=== PATIENT | male | born 1985 | race Caucasian/White ===

== ENCOUNTER 2017-06-03 05:50 | Emergency (ER) | payer OTHER ==
[~2017-06-03] VITALS: Ht 170.1 cm; Wt 83.9 kg
[~2017-06-03 05:50] MED LIST: CLARITIN10 MG PO; ZITHROMAX Z PA250 MG PO
[2017-06-03] MEDS ORDERED: PRILOSEC10 M2 PO (06:06)
[2017-06-03] MEDS ORDERED: SINGULAIR5 MG PO (06:06)
[2017-06-03 06:58] LABS: BASO % 0.4 % (0.0-1.0); EOS # 0.1 10*3/uL (0.0-0.4); EOS % 0.7 % (1.0-4.0); HEMATOCRIT 41.6 % (42.0-52.0); HEMOGLOBIN 14.4 g/dl (14.0-18.0); LYMPH # 1.4 10*3/uL (1.3-4.4); LYMPH % 18.9 % (27.0-41.0); MEAN CELL VOLUME 84.6 fl (80.0-94.0); MEAN CORPUSCULAR HGB 29.3 pg (27.0-31.0); MEAN CORPUSCULAR HGB CONC 34.6 g/dl (33.0-37.0); MEAN PLATELET VOLUME 10.3 fl (9.6-12.3); MONO # 0.5 10*3/uL (0.1-1.0); MONO % 6.4 % (3.0-9.0); NEUT # 5.4 10*3/uL (2.3-7.9); NEUT % 73.5 % (47.0-73.0); PLATELET COUNT AUTOMATED 208 10*3/uL (130-400); RED BLOOD COUNT 4.92 10*6/uL (4.50-5.90); RED CELL DISTRI WIDTH 12.4 % (0-14.5); WHITE BLOOD COUNT 7.3 10*3/uL (4.8-10.8)
[2017-06-03 07:12] LABS: ALBUMIN 4.2 gm/dl (3.1-4.5); ALKALINE PHOSPHATASE 54 U/L (45-117); BUN 12 mg/dl (7-24); CHLORIDE 106 mmol/L (98-107); CREATININE 0.93 mg/dL (0.70-1.30); POTASSIUM 3.5 mmol/L (3.5-5.1); SGOT/AST 12 IU/L (3-35); SGPT/ALT 17 U/L (12-78); SODIUM 141 mmol/L (136-145); TOTAL PROTEIN 7.3 gm/dL (6.4-8.2)
[2017-06-03 07:20] LABS: TROPONIN I < 0.015 ng/ml (<0.045)
== END 2017-06-03 09:09 | disposition home or self-care (01) ==
LOC: ED 05:50
PROVIDERS: Emergency Medicine
DX: R42 Dizziness and giddiness (principal); M54.2 Cervicalgia; Z91.040 Latex allergy status; Z79.899 Other long term (current) drug therapy

== ENCOUNTER 2017-06-16 22:46 | Inpatient (IN) | payer OTHER ==
[~2017-06-16] VITALS: Ht 170.1 cm; Wt 81.5 kg
[~2017-06-16 22:46] MED LIST changes: +PRILOSEC10 M2 PO; +SINGULAIR5 MG PO
[2017-06-16 23:04] VITALS: BP 133/87
[2017-06-16 23:31] LABS: BASO % 0.3 % (0.0-1.0); EOS % 0.4 % (1.0-4.0); HEMATOCRIT 44.3 % (42.0-52.0); HEMOGLOBIN 15.3 g/dl (14.0-18.0); LYMPH # 1.2 10*3/uL (1.3-4.4); MEAN CELL VOLUME 82.5 fl (80.0-94.0); MEAN CORPUSCULAR HGB 28.5 pg (27.0-31.0); MEAN CORPUSCULAR HGB CONC 34.5 g/dl (33.0-37.0); MONO # 0.4 10*3/uL (0.1-1.0); MONO % 5.4 % (3.0-9.0); NEUT # 5.7 10*3/uL (2.3-7.9); NEUT % 77.8 % (47.0-73.0); PLATELET COUNT AUTOMATED 195 10*3/uL (130-400); RED BLOOD COUNT 5.37 10*6/uL (4.50-5.90); WHITE BLOOD COUNT 7.4 10*3/uL (4.8-10.8)
[2017-06-16 23:41] LABS: ACT PARTIAL THROMBO TIME 23.8 SECONDS (20.8-31.5); INTERNATIONAL NORM RATIO 1.1 (2.0-3.5)
[2017-06-16 23:50] LABS: ALBUMIN 4.3 gm/dl (3.1-4.5); ALKALINE PHOSPHATASE 62 U/L (45-117); BUN 17 mg/dl (7-24); CHLORIDE 102 mmol/L (98-107); CREATININE 0.95 mg/dL (0.70-1.30); MAGNESIUM 2.5 mg/dL (1.5-2.1); POTASSIUM 3.6 mmol/L (3.5-5.1); SGOT/AST 11 IU/L (3-35); SGPT/ALT 16 U/L (12-78); SODIUM 139 mmol/L (136-145); TOTAL PROTEIN 7.9 gm/dL (6.4-8.2)
[2017-06-16 23:51] LABS: TROPONIN I < 0.015 ng/ml (<0.045)
[2017-06-17 00:25] VITALS: BP 153/75
--- NOTE | 2017-06-17 00:25 | NUR ---
[facility] 31, admitted to , under the services of ALL Lund DO with a diagnosis of ABNORMAL EKG, CHEST PAIN. Chief complaint is CHEST PAIN TIGLING IN LEFT ARM AND NECK . Patient arrived via ambulatory from ER. Monitor applied. Initial assessment completed. Vital signs taken and recorded. ALL LUND DO notified of admission to the unit. Orders received. See assessment for past medical history, medications and allergies. Patient and/or family oriented to unit. [address] visitation policy reviewed. Clothing/patient valuable form completed. PEDRO BETTENCOURT
--- NOTE | 2017-06-17 00:35 | NUR ---
PATENTS HOME MEDICATIONS REVIEWED AND UPDATED JUAQUIN WITH HIS PHARMACY AT THIS TIME.
[2017-06-17] MEDS ORDERED: CELEXA20 MG PO (01:17)
--- NOTE | 2017-06-17 01:20 | NUR ---
MEDICAL RECORDS RELEASE SIGNED BY PATIENT TO OBTAIN CARDIAC STRESS TEST FROM [facility] THAT HE HAD DONE IN FEBRUARY 2017 .
[2017-06-17 05:01] LABS: BASO % 0.1 % (0.0-1.0); EOS % 0.1 % (1.0-4.0); HEMATOCRIT 42.2 % (42.0-52.0); HEMOGLOBIN 14.7 g/dl (14.0-18.0); LYMPH # 1.6 10*3/uL (1.3-4.4); MEAN CELL VOLUME 83.2 fl (80.0-94.0); MEAN CORPUSCULAR HGB CONC 34.8 g/dl (33.0-37.0); MEAN PLATELET VOLUME 11.1 fl (9.6-12.3); MONO # 0.4 10*3/uL (0.1-1.0); NEUT # 6.3 10*3/uL (2.3-7.9); NEUT % 75.6 % (47.0-73.0); PLATELET COUNT AUTOMATED 217 10*3/uL (130-400); RED BLOOD COUNT 5.07 10*6/uL (4.50-5.90); RED CELL DISTRI WIDTH 11.9 % (0-14.5); WHITE BLOOD COUNT 8.3 10*3/uL (4.8-10.8)
[2017-06-17 05:15] LABS: BUN 15 mg/dl (7-24); CHLORIDE 103 mmol/L (98-107); CREATININE 0.91 mg/dL (0.70-1.30); POTASSIUM 3.9 mmol/L (3.5-5.1); SODIUM 142 mmol/L (136-145)
[2017-06-17 05:21] LABS: CHOLESTEROL 231 mg/dL (<200); HDL CHOLESTEROL 43 mg/dl (40-60); LDL CHOLESTEROL 165 mg/dL (9-159); PHOSPHOROUS 4.1 mg/dL (2.5-4.9); TRIGLYCERIDES 114 mg/dl (<150); VLDL CHOLESTEROL 23 mg/dL (6-40)
[2017-06-17 05:26] LABS: THYROID STIM HORMONE (HS) 0.974 uIU/ml (0.358-4.75)
--- NOTE | 2017-06-17 06:24 | NUR ---
NOTIFIED DR WALTER FOR CONSULTATION REACHING THE DIGITAL ANALYST SERVICE. NO NEW ORDERS AT THIS TIME.
[2017-06-17 08:00] VITALS: BP 138/71
[2017-06-17 08:00] LABS: VITAMIN D, 25-HYDROXY 15.3 ng/mL (30-100)
[2017-06-17 12:00] VITALS: BP 140/73
[2017-06-17] MEDS ORDERED: Vitamin D PO (12:21)
--- NOTE | 2017-06-17 12:56 | NUR ---
[facility] Discharge instructions reviewed with patient/family. Patient receptive and verbalizes understanding. Follow-up care arranged. Written instructions given to patient/family. DOMINIQUE DUNN
== END 2017-06-17 12:56 | disposition home or self-care (01) | DRG 313 ==
LOC: ED 22:46 → 4E 06-17 00:06 → EDHOLD 06-17 00:06 → 4E 06-17 00:19
PROVIDERS: Student in an Organized Health Care Education/Training Program; ADMIT Internal Medicine
DX: R07.9 Chest pain, unspecified (principal); I25.10 Atherosclerotic heart disease of native coronary artery without angina pectoris; E83.41 Hypermagnesemia; K74.60 Unspecified cirrhosis of liver; R00.0 Tachycardia, unspecified; R03.0 Elevated blood-pressure reading, without diagnosis of hypertension; F41.1 Generalized anxiety disorder; K21.9 Gastro-esophageal reflux disease without esophagitis; I10 Essential (primary) hypertension; E78.5 Hyperlipidemia, unspecified; J30.2 Other seasonal allergic rhinitis; R63.4 Abnormal weight loss; Z83.3 Family history of diabetes mellitus; Z68.28 Body mass index [BMI] 28.0-28.9, adult; Z79.899 Other long term (current) drug therapy